=== PATIENT | male | born 1980 ===

== ENCOUNTER 2023-06-30 20:29 | Outpatient (CLI) | payer BC | END 2023-07-01 06:34 | LOC: CANPRECLI → SLEEP 20:29 | PROVIDERS: ATTEND Family Medicine | DX: G47.33 Obstructive sleep apnea (adult) (pediatric) (principal); G47.10 Hypersomnia, unspecified; G47.30 Sleep apnea, unspecified; G47.61 Periodic limb movement disorder; I10 Essential (primary) hypertension; R06.83 Snoring | CPT/HCPCS: 95811 ==